=== PATIENT | male | born 1955 | race Caucasian/White ===

== ENCOUNTER 2021-02-09 16:12 | Emergency (ER) | payer SELFPAY ==
[~2021-02-09] VITALS: Ht 175.3 cm; Wt 81.6 kg
[2021-02-09 16:15] VITALS: BP_SYST 153
--- NOTE | 2021-02-09 16:19 | NUR ---
DR COULTER IN TO ASSESS
--- NOTE | 2021-02-09 16:24 | NUR ---
SLOW TO RESPOND, CLEAR RESPONSES, ADMIT TO HEROIN USE. MULTIPLE SCARING TO BLE. RESP UNLABORED, SAO2 99 % ON RA
[2021-02-09 16:55] LABS: BASOPHILS % (AUTO) 0.6 % (0.0-2.0); EOSINOPHILS # (AUTO) 0.2 K/uL (0.0-0.4); EOSINOPHILS % (AUTO) 2.2 % (0.0-4.0); HEMATOCRIT 31.2 % (36-54); HEMOGLOBIN 10.6 g/dL (14.0-18.0); LYMPHOCYTES # (AUTO) 0.9 K/uL (1.0-5.5); MEAN CORPUSCULAR HEMOGLOBIN 31 pg (27-31); MEAN CORPUSCULAR HGB CONC 34 % (32-36); MEAN CORPUSCULAR VOLUME 90 fL (79.0-98.0); MONOCYTES # (AUTO) 0.6 K/uL (0.0-1.0); MONOCYTES % (AUTO) 8.4 % (1.7-9.3); NEUTROPHILS # (AUTO) 5.6 K/uL (1.8-7.7); NEUTROPHILS % (AUTO) 76.8 % (40.0-70.0); PLATELET COUNT (AUTO) 280 K/uL (130-430); RED BLOOD CELL COUNT(AUTO) 3.47 MIL/uL (4.2-6.2); RED CELL DISTRIBUTION WIDTH 14.2 % (9.0-15.0); WHITE BLOOD COUNT (AUTO) 7.3 K/uL (4.8-10.8)
--- NOTE | 2021-02-09 16:56 | NUR ---
[facility]
--- NOTE | 2021-02-09 17:03 | NUR ---
BACK FROM CT, PT TOLERATED WELL, NO DISTRESS, NO CHANGE IN MENTATION, EASILY AROUSED
[2021-02-09] MEDS ORDERED: NALOXONE HCL 2 MG/2 ML SYR IVP ONE (17:30)
[2021-02-09 17:42] LABS: INR 1.1 (0.80-1.20); PROTHROMBIN TIME 11.1 SECS (9.5-12.5)
[2021-02-09 18:00] LABS: ALANINE AMINOTRANSFERASE 13 U/L (12-78); ALCOHOL, BLOOD 4 mg/dL (<10); ASPARTATE AMINOTRANSFERASE 21 U/L (10-37); CALCIUM 8.5 mg/dL (8.4-11.0); CREATININE 0.88 mg/dL (0.55-1.30); GLUCOSE 97 mg/dL (70-99); TOTAL BILIRUBIN 0.6 mg/dL (0.0-1.0); UREA NITROGEN, BLOOD 18 mg/dL (8-21)
[2021-02-09 18:29] LABS: GFR AFRICAN AMERICAN 112 mL/min (>90)
[2021-02-09 18:30] LABS: SODIUM SERUM 134 mmol/L (136-145)
[2021-02-09 18:32] LABS: ANION GAP 15 (5-15); CHLORIDE 99 mmol/L (98-107); POTASSIUM 3.9 mmol/L (3.5-5.1)
[2021-02-09 18:33] LABS: ACETAMINOPHEN < 1 ug/mL (1-30)
--- NOTE | 2021-02-09 19:07 | NUR ---
EASILY AROUSED, SKIN WARM AND DRY. CLEAR MENTATION AND SPEECH, NO DISTRESS
[2021-02-09 19:51] LABS: ACETONE, SERUM NEGATIVE (NEGATIVE)
[2021-02-09 20:00] LABS: C-REACTIVE PROTEIN QUANT 6.5 mg/dL (0-0.5)
--- NOTE | 2021-02-09 21:34 | NUR ---
PT RESTING AT THIS TIME. VSS. EASILY AROUSABLE. NO VISUAL DISTRESS AT THIS TIME.
--- NOTE | 2021-02-09 22:40 | NUR ---
PT GIVEN WIPES AND CLEANED HIMSELF. PT STABLE ON HIS FEET. VSS.
--- NOTE | 2021-02-09 22:42 | NUR ---
SPOKE TO TYRESE RODARTE (DAUGHTER) TO PICK PATIENT UP. [phone]. GAVE UPDATE ON PT CONDITION. WILL BE HERE IN 10 MINUTES TO TOOTH GRINDER.
[2021-02-09 23:00] VITALS: BP_SYST 135
== END 2021-02-09 23:00 | disposition home or self-care (01) ==
LOC: SED 16:12
DX: T40.691A Poisoning by other narcotics, accidental (unintentional), initial encounter (principal); R41.82 Altered mental status, unspecified; I49.9 Cardiac arrhythmia, unspecified; Y92.89 Other specified places as the place of occurrence of the external cause
CPT/HCPCS: 36415; 70450; 71045; 76376; 80053; 82009; 82140; 82550; 83605; 83880; 84484; 85025; 85610; 85730; 86140; 93005; 96374; 99285; G0480; J2310; G0481; G0482